=== PATIENT | male | born 2000 ===

== ENCOUNTER 2022-09-01 09:53 | Emergency (ER) | payer OTHER, SELFPAY ==
--- NOTE | 2022-09-01 10:43 | ED.URI ---
HPI - URI/Sore Throat General Chief Complaint: Upper Respiratory Infection Stated Complaint: sore throat Source: patient and RN notes reviewed History of Present Illness HPI Narrative: 22-year-old male presents to Urgent Care with dad at side. Patient states he has a sore throat that started a couple days ago. Patient states he had the same symptoms approximately 1 week ago and was given amoxicillin my doctor at school for presumed strep throat. Patient about 6 days worth of the amoxicillin but forgot his medication when he went on vacation. Patient states his symptoms resolved after taking 2 days of the amoxicillin within return to couple days ago. Patient reports congestion and painful swallowing. Patient is taking ibuprofen home. Denies any fevers, vomiting, diarrhea, chest pain, or shortness of breath. Denies any trouble breathing. Some parts of this dictation were generated by voice recognition software and may contain typographical and/or grammatical inaccuracies. Related Data Allergies Allergy/AdvReac Type Severity Reaction Status Date / Time No Known Allergies Allergy Verified 09/01/22 10:35 Review of Systems Review of Systems: Pertinent positives and pertinent negatives per HPI. PMFSH Comments At the time of my signature, I reviewed and agree with the nursing past medical, surgical, social, and family history. There is no relevant family history pertinent to the patient complaint. Exam Narrative: GENERAL: This is a well-nourished, well-developed patient, in no apparent distress. HEAD: normocephalic, atraumatic. EYES: Sclera clear/white. Vision is grossly intact. EARS: External ears normal, auditory canals clear and without drainage, TMs normal without perforation. Hearing grossly intact. NOSE: External nose normal with no obvious nasal discharge, nares without redness, no rhinorrhea. Congestion. THROAT: Mucous membranes moist, posterior pharynx Erythemic with bilateral tonsils 2+. No exudate noted. NECK: Neck supple, non-tender with mild lymphadenopathy. No masses or thyromegaly. CARDIOVASCULAR: Regular rate and rhythm without murmurs, gallops, or rubs. RESPIRATORY: Clear to auscultation. Breath sounds equal bilaterally. No wheezes, rales, or rhonchi. GASTROINTESTINAL: Abdomen soft, non-tender, nondistended. Bowel sounds are active. No hepato-splenomegaly, or palpable masses. No guarding. SKIN: warm, intact with no suspicious lesions or rash, good texture and turgor. NEURO: awake, alert, and oriented to person, place and time. There were no obvious focal neurologic abnormalities. Course Course Level of Care: Express Care Visit Vital Signs Vital signs: Vital Signs Temperature 98.3 F 09/01/22 10:45 Pulse Rate 109 H 09/01/22 10:45 Respiratory Rate 16 09/01/22 10:45 Blood Pressure 134/84 09/01/22 10:45 Pulse Oximetry 100 09/01/22 10:45 Temperature 98.3 F 09/01/22 10:45 Pulse Rate 109 H 09/01/22 10:45 Respiratory Rate 16 09/01/22 10:45 Blood Pressure 134/84 09/01/22 10:45 Pulse Oximetry 100 09/01/22 10:45 reviewed MDM - URI/Sore Throat MDM Narrative Medical decision making narrative: Rapid strep is negative in the office; however we will send to the lab for confirmation; there is a small percentage chance that it can come back positive; if it is, we will call you in 2-3days; and your prescription will be call in to your pharmacy. However, there is NO indication for antibiotic at this time. -Increase your fluids and Vitamin C. -Oral rinses such as: Salt water gargles and/or may use topical anesthetic (eg. Chloraseptic spray) or lozenges to relieve dryness or throat pain. -Take tylenol and ibuprofen as needed for pain and fever as directed. -Frequent hand washing or hand electro mechanical solar technician is one of the best ways to prevent spread of infection. -Follow up with primary care provider in 2-3 days if condition is not improving or seek ER visit if your child starts breathing fas
[2022-09-01 10:45] VITALS: BP 134/84; PULSE 109; RESP 16; TEMP 36.8; O2SAT 100
== END 2022-09-01 11:13 | disposition home or self-care (01) ==
PROVIDERS: Emergency Provider Nurse Practitioner Family; PCP Pediatrics
DX: J02.9 Acute pharyngitis, unspecified (principal)
CPT/HCPCS: 87081; 87880; 99213; G0463